=== PATIENT | female | born 1955 | race Caucasian/White ===

== ENCOUNTER → 2017-12-21 | Outpatient (CLI) | payer OTHER ==
[~2017-12-21] MED LIST: AMLO2.5T3 PO; BUPIVACAINE MPF 0.5% 10 ML VIAL for KCIC. IM ONE; HYDR12.53 PO; IOHEXOL 300 MG/ML 50 ML VIAL. INT ART ONE; LIDOCAINE 1% Multi-Dose 20 ML VIAL. ID ONE; methylPREDNISolone ACETATE 40 MG/ML VIAL. INT ART ONE
--- NOTE | 2017-12-21 18:06 | KCIC ---
Right hip injection History: Primary osteoarthritis of the right hip, pain for 2 to 3 months radiating into the leg Findings: Patient was informed of the risks to include pain, infection, bleeding, nerve or blood vessel injury, and allergic reaction. All questions were answered. The patient signed a written consent form for a right hip injection. Patient was placed in a supine position. External skin site overlying the right hip was prepped and draped in the usual sterile fashion. Betadine was utilized for cleansing solution. 1% lidocaine was utilized for local anesthesia to the depth of the right femoral neck. 22-gauge spinal needle was advanced to the margin of the right femoral neck. Solution containing 2 mL Depo-Medrol, 4 cc lidocaine, 4 cc Omnipaque 300, and 4 cc bupivacaine were injected. However due to firm resistance, the entirety of the mixture could not be injected, approximately 10 cc of the mixture injected. Injection demonstrated intra-articular position of the needle tip. Needle was removed. There were no immediate complications. Bandage was applied at site of puncture. Fluoroscopy time: 64 seconds, 2 fluoroscopic images. Impression: 1. Technically successful right hip injection without immediate complication as stated. Electronically signed by: Ananda Hickey MD (12/21/2017 6:03 PM) [facility]
== END | disposition home or self-care (01) ==
LOC: KCIC 12:35
PROVIDERS: ATTEND Nurse Practitioner Gerontology
DX: M16.11 Unilateral primary osteoarthritis, right hip (principal)
CPT/HCPCS: 20610; 77002; J1030; Q9967

== ENCOUNTER → 2018-05-02 | Outpatient (CLI) | payer OTHER ==
[~2018-05-02] MED LIST changes: -AMLO2.5T3 PO; +AMLO2.5T5 PO; +ATOR20TA58 PO; -BUPIVACAINE MPF 0.5% 10 ML VIAL for KCIC. IM ONE; +GABA600T7 PO; -HYDR12.53 PO; +HYDR12.575 PO; +IBUP-1007 PO; -IOHEXOL 300 MG/ML 50 ML VIAL. INT ART ONE; -LIDOCAINE 1% Multi-Dose 20 ML VIAL. ID ONE; +MELO15TA6 PO; +RANI150C PO; +TRAM50TA PO; +TRAZ-86 PO; +WARF-31 PO; -methylPREDNISolone ACETATE 40 MG/ML VIAL. INT ART ONE
[2018-05-02 09:56] LABS: ALBUMIN 3.7 g/dL (3.4-5.0); BASO # 0.1 x10^3/uL (0.0-0.2); BASO % 1 % (0-3); CALCIUM 9.7 mg/dL (8.5-10.1); CREATININE 0.7 mg/dL (0.6-1.0); EOS # 0.3 x10^3/uL (0.0-0.7); EOS % 4 % (0-3); GFR 84.8; HEMATOCRIT 42.7 % (36.0-47.0); LYMPH # 2.3 x10^3/uL (1.0-4.8); LYMPH % 29 % (24-48); MEAN CORPUSCULAR HEMOGLOBIN 32 pg (25-35); MEAN CORPUSCULAR HGB CONC 35 g/dL (31-37); MEAN CORPUSCULAR VOLUME 90 fL (79-100); MONO # 0.6 x10^3/uL (0.0-1.1); MONO % 8 % (0-9); NEUT # 4.7 x10^3uL (1.8-7.7); NEUT % 59 % (31-73); PLATELET COUNT 319 x10^3/uL (140-400); POTASSIUM 3.3 mmol/L (3.5-5.1); RED BLOOD COUNT 4.75 x10^6/uL (3.50-5.40); RED CELL DISTRIBUTION WIDTH 12.9 % (11.5-14.5); WHITE BLOOD COUNT 7.9 x10^3/uL (4.0-11.0)
[2018-05-02 10:00] LABS: PROTHROMBIN TIME PATIENT 13.8 SEC (11.7-14.0)
[2018-05-02 13:23] LABS: BILIRUBIN,URINE NEGATIVE (NEG); CLARITY,URINE CLEAR; COLOR,URINE YELLOW; NITRITE,URINE NEGATIVE (NEG); PROTEIN,URINE NEGATIVE (NEG-TRACE); UROBILINOGEN,URINE 0.2 mg/dL (0.2 mg/dL)
[2018-05-02 13:33] LABS: BACTERIA,URINE 0 /HPF (0-FEW); RBC,URINE 0 /HPF (0-2); SQUAMOUS EPITHELIAL CELL,UR FEW /LPF; WBC,URINE 0 /HPF (0-4)
--- NOTE | 2018-05-02 13:59 | EKG ---
[facility] [address] [place] [address] Test Date: 2018-05-02 Test Time: 13:46:04 Pat Name: JEREMIAH MCCRAY Department: Patient ID: [id number] Room: Gender: F Finance Advisor: [facility] : 1955 Requested By: LINDA OCONNOR Order Number: [id number] Reading MD: Evangelista Cooley MD Measurements Intervals [place] Rate: 74 P: 43 NE: 180 QRS: 56 QRSD: 74 T: 21 QT: 392 QTc: 436 Interpretive Statements SINUS RHYTHM Electronically Signed On 05-03-2018 12:15:59 LOCAL [employer] by Evangelista Cooley MD
--- NOTE | 2018-05-02 18:28 | RAD ---
Chest, 2 views, 05/02/2018: HISTORY: Preop evaluation for hip surgery The heart size and pulmonary vascularity are normal. No pulmonary infiltrate is seen. There is no evidence of pleural fluid. IMPRESSION: No acute cardiopulmonary abnormality is detected. Electronically signed by: Fernie Bowen MD (05/02/2018 6:24 PM) [facility]
== END | disposition home or self-care (01) ==
LOC: SURGPAT 14:14
PROVIDERS: ATTEND Orthopaedic Surgery
DX: Z01.818 Encounter for other preprocedural examination (principal); I10 Essential (primary) hypertension; F17.200 Nicotine dependence, unspecified, uncomplicated; Z79.01 Long term (current) use of anticoagulants
CPT/HCPCS: 36415; 71046; 80048; 81001; 82040; 85025; 85610; 85651; 85730; 87641; 93005

== ENCOUNTER 2020-12-06 12:01 | Emergency (ER) | payer MEDICARE, OTHER ==
[~2020-12-06] VITALS: Ht 152.4 cm; Wt 68.2 kg
[~2020-12-06 12:01] MED LIST changes: +TRAZ-123 PO; -TRAZ-86 PO
[2020-12-06] MEDS ORDERED: HYDROcodone/APAP 5/325MG 1 TAB TABLET PO ONE (12:45)
--- NOTE | 2020-12-06 12:46 | PHYS DOC ---
Past Medical History Additional Past Medical Histor: "LOW VITAMIN B" Past Surgical History: Hip Replacement Additional Past Surgical Histo: RIGHT HIP REPLACEMENT Smoking Status: Current Every Day Smoker General Adult EDM: Chief Complaint: UPPER EXTREMITY PAIN HPI: HPI: Patient is a 65 year old female presents emergency department complaining of right anterior shoulder and right mid shaft humerus pain for the past month. Patient reports she works out in her yard every day, suspects it might be from overuse. Patient reports she fractured her right humerus 33 years ago and worries that there may be something going on with the site that she broke patient denies blunt injury or trauma. Patient denies numbness or tingling distally to her shoulder and upper arm pain. Patient denies any swelling or skin discolorations. Patient reports full movement of elbow wrist and hand of the right, reports limited range of motion of her shoulder joint related to pain. Patient denies any pain when self splinting against body, reports a 6 out of 10 pain when moving her shoulder around. Patient reports her pain is a sharp stabbing in nature, 6 out of 10 at its worst, 0 at its best. Reports taking a ibuprofen 600 mg approximately 1 hour prior to arrival today for pain, reports she is not sure if it is helping or not because she is currently experiencing no pain. Patient denies trying any nonpharmacological pain relief therapies. Patient denies any other physical complaints or physical concerns. Review of Systems: Review of Systems: 14 body systems of review of systems have been reviewed. See HPI for pertinent positives and negative responses, otherwise all other systems are negative, nonpertinent or noncontributory. Constitutional: Negative except as outlined in HPI above. Skin: Negative except as outlined in HPI above. Eyes: Negative except as outlined in HPI above. HENT: Negative except as outlined in HPI above. Respiratory: Negative except as outlined in HPI above. Cardiovascular: Negative except as outlined in HPI above. GI: Negative except as outlined in HPI above. : Negative except as outlined in HPI above. Musculoskeletal: Negative except as outlined in HPI above. Integument: Negative except as outlined in HPI above. Neurologic: Negative except as outlined in HPI above. Endocrine: Negative except as outlined in HPI above. Lymphatic: Negative except as outlined in HPI above. Psychiatric: Negative except as outlined in HPI above. Heart Score: C/O Chest Pain: No Risk Factors: Risk Factors: DM, Current or recent (<one month) smoker, HTN, HLP, family history of CAD, obesity. Risk Scores: Score 0 - 3: 2.5% MACE over next 6 weeks - Discharge Home Score 4 - 6: 20.3% MACE over next 6 weeks - Admit for Clinical Observation Score 7 - 10: 72.7% MACE over next 6 weeks - Early Invasive Strategies Allergies: Allergies: Allergies Coded Allergies Type Severity Reaction Last Updated Verified tetracycline Adverse Reaction Intermediate Nausea and Vomiting 06/07/18 Yes Physical Exam: PE: Constitutional: Well developed, well nourished, no acute distress, non-toxic appearance. 65-year-old female in no apparent distress. HENT: Normocephalic, atraumatic. Eyes: Conjunctiva normal, no discharge. Neck: Normal range of motion, no stridor. Cardiovascular: No cyanosis appreciated, distal cap refill less than 2 seconds. Lungs & Thorax: Patient is in no respiratory distress, no audible adventitious lung sounds appreciated. Abdomen: Nontender, no abnormalities noted. Skin: Warm, dry, no erythema, no rash. Back: No tenderness, no deformities. Extremities: No tenderness, no cyanosis, no clubbing, ROM intact, no edema. Except for right shoulder, no deformity, no crepitus appreciated, limited passive range of motion related to pain, pain to palpation along midshaft hu merus, no bruising, no swelling, no edema, distal cap refill less than 2 seconds, 2+ radial and brachial pulses, Neurologic: Alert and oriented X 3, normal motor function, normal sensory function, no focal deficits noted. Psychologic: Affect normal, judgement normal, mood normal. Current Patient Data: Vital Signs: Vital Signs Date Time Temp Pulse Resp B/P (MAP) Pulse Ox O2 Delivery O2 Flow Rate FiO2 12/06/20 12:16 98.7 86 18 151/76 (60) 97 Room Air 98.7 EKG: EKG: [] Radiology/Procedures: Radiology/Procedures: PATIENT: JEREMIAH MCCRAY ACCOUNT: [id number] : 1955 LOCATION: ER AGE: 65 SEX: F EXAM STATUS: PRE ER ORD. PHYSICIAN: JARRELL JOHNSON APRN REASON: pain anterior shoulder x one month PROCEDURE: SHOULDER 2+V RIGHT Exam performed: X-ray right humerus and right shoulder. HISTORY: Pain. DATE OF SERVICE: 12/06/2020. COMPARISON: None available FINDINGS: AP and lateral view of the right humerus and AP view of the right shoulder in internal and external rotation and Y view is obtained. Normal alignment of the glenohumeral and acromial clavicular joint as well as elbow joint is maintained. There are early degenerative changes about the acromioclavicular joint. Old healed fracture of the distal right humerus. No soft tissue swelling or foreign body seen. IMPRESSION: Old healed fracture distal right humerus. Degenerative changes right acromioclavicular joint. Electronically signed by: Bhavya Shafer MD (12/06/2020 1:09 PM) [id number] Course & Med Decision Making: Course & Med Decision Making Pertinent Labs and Imaging studies reviewed. (See chart for details) 55-year-old female, vital signs reviewed, presents to the emergency department concerning right shoulder and right upper arm pain for the past month. Physical examination consistent with overuse injury, will x-ray to rule out bony process. Will give p.o. pain medication. X-ray right shoulder shows arthritic changes, humerus shows well-healed old fracture, no acute bony process per house radiologist rotation. Discussed findings with patient, patient reports she is feeling better since p.o. pain medication given, discussed shoulder exercises, overuse injury, using NSAIDs ibuprofen or Naprosyn for pains. Strict follow-up with primary care this week. Patient reports she does have a appointment to see her primary care physician this coming Wednesday. Patient is amenable to ED discharge planning. Discussed with the patient all findings and diagnostic testing as well as the need to follow-up with their primary care provider for further evaluation and treatment or return to the ED if any new or worsening symptoms. Strict return precautions were also discussed at length, the patient voiced understanding and agreement with the discharge planning. The patient was nontoxic in appearance, in no apparent distress, and hemodynamically stable at the time of disposition. Dragon Disclaimer: Dragon Disclaimer: This electronic medical record was generated, in whole or in part, using a voice recognition dictation system. Departure Departure Impression: Primary Impression: Right shoulder pain Qualified Codes: M25.511 - Pain in right shoulder; G89.29 - Other chronic pain Additional Impression: Right upper limb pain Disposition: 01 HOME / SELF CARE / HOMELESS Condition: GOOD Referrals: RENAY VILLARREAL (PCP) Patient Instructions: Shoulder Exercises, Generic, SportsMed Additional Instructions: You were seen today in the emergency department for pain in the right shoulder and right upper arm after weed eating and moving rocks and performing an excessive amount of yard work over the past month. Your physical examination was reassuring and that you do not have a bony injury however the x-ray as we discussed did show some arthritic changes. As we discussed please use ibuprofen or Naprosyn for anti-inflammatory, I am prescribing you a oral steroid, please take as directed, you are given an injection of steroid today in the emergency department called Depo-Medrol 40 mg. Please keep your appointment with your primary care physician. Return to the emergency department for worsening symptoms or other concerns. Thank you for visiting our Emergency Department. It was a pleasure taking care of you today in the emergency department and we appreciate you trusting us with your care. If any additional problems come up don't hesitate to return to visit us. Please follow up with your primary care provider so they can plan additional care if needed and know about the problem that you had. If symptoms worsen come back to the Emergency Department. Any concerning symptoms that start such as chest pain, shortness of air, weakness or numbness on one side of the body, running high fevers or any other concerning symptoms return to the ER. EMERGENCY DEPARTMENT GENERAL DISCHARGE INSTRUCTIONS Thank you for coming to [facility] (ED) today and trusting us with you care. We trust that you had a positive experience in our Emergency Department. If you wish to speak to the department management, you may call the Director at [phone]. YOUR FOLLOW UP INSTRUCTIONS ARE FOLLOWS: 1. Do you have a private Doctor? If you do not have a private doctor, please ask for a resource list of physicians or clinics that may be able to assist you with follow up care. 2. The Emergency Physicain has interpreted your x-rays. The X-Ray specialist will also review them. If there is a change in the findings, you will be notified in 48 hours when at all possible. 3. A lab test or culture has been done, your results will be reviewed and you will be notified if you need a change in treatment. ADDITIONAL INSTRUCTIONS AND INFORMATION: 1. Your care today has been supervised by a physician who is specially trained in emergency care. Many problems require more than one evaluation for a complete diagnosis and treatment. We recommend that you schedule your follow up appointment as recommended to ensure complete treatment of you illness or injury. If you are unable to obtain follow up care and continue to have a problem, or if your condition worsens, we recommend that you return to the ED. 2. We are not able to safely determine your condition over the phone nor are we able to give sound medical advice over the phone. For these safety reasons, if you call for medical advice we will ask you to come to the ED for further evaluation. 3. If you have any questions regarding these discharge instructions please call the ED at [phone]. SAFETY INFORMATION: In the interest of safety, wellness, and injury prevention; we encourage you to wear your sealbelt, if you smoke; quite smoking, and we encourage family to use a protective helmet for bicycling and other sporting events that present an increased risk for head injury. IF YOUR SYMPTOMS WORSEN OR NEW SYMPTOMS DEVELOP, OR YOU HAVE CONCERNS ABOUT YOUR CONDITION; OR IF YOUR CONDITION WORSENS WHILE YOU ARE WAITING FOR YOUR FOLLOW UP APPOINTMENT; EITHER CONTACT YOUR PRIMARY CARE DOCTOR, THE PHYSICIAN WHOSE NAME AND NUMBER YOU WERE GIVEN, OR RETURN TO THE ED IMMEDIATELY. Scripts Hydrocodone Bit/Acetaminophen (HYDROCODONE-APAP 10-325 ) 1 Tab Tablet 1 TAB PO PRN Q6HRS PRN for SEVERE PAIN 7-10, #10 TAB 0 Refills Prov: JARRELL JOHNSON APRN 12/06/20 Methylprednisolone (MEDROL) 4 Mg Tab.ds.pk 4 MG PO DAILY for shoulder pain, #28 TAB 0 Refills Please take medication as directed Prov: JARRELL JOHNSON APRN 12/06/20 JARRELL JOHNSON APRN Dec 06, 2020 12:46
--- NOTE | 2020-12-06 13:12 | RAD ---
Exam performed: X-ray right humerus and right shoulder. HISTORY: Pain. DATE OF SERVICE: 12/06/2020. COMPARISON: None available FINDINGS: AP and lateral view of the right humerus and AP view of the right shoulder in internal and external r otation and Y view is obtained. Normal alignment of the glenohumeral and acromial clavicular joint as well as elbow joint is maintain ed. There are early degenerative changes about the acromioclavicular joint. Old healed fracture of th e distal right humerus. No soft tissue swelling or foreign body seen. IMPRESSION: Old healed fracture distal right humerus. Degenerative changes right acromioclavicular joint. Electronically signed by: Bhavya Shafer MD (12/06/2020 1:09 PM) [id number]
[2020-12-06] MEDS ORDERED: HYDR-2769 PO (14:17)
[2020-12-06] MEDS ORDERED: METH4TAB2 PO (14:17)
[2020-12-06] MEDS ORDERED: methylPREDNISolone ACETATE 40 MG/ML VIAL. IM ONE (14:30)
[2020-12-06 14:51] VITALS: BP 165/77
== END 2020-12-06 14:49 | disposition home or self-care (01) ==
LOC: ER 12:01
DX: M25.511 Pain in right shoulder (principal); G89.29 Other chronic pain; M79.601 Pain in right arm; F17.200 Nicotine dependence, unspecified, uncomplicated; Z96.641 Presence of right artificial hip joint; Z88.1 Allergy status to other antibiotic agents
CPT/HCPCS: 73030; 73060; 96372; 99284; J1030

== ENCOUNTER 2021-01-05 10:52 | Emergency (ER) | payer MEDICARE, OTHER ==
[~2021-01-05] VITALS: Ht 152.4 cm; Wt 70.0 kg
[~2021-01-05 10:52] MED LIST changes: +HYDR-2769 PO; +METH4TAB2 PO
[2021-01-05 12:41] VITALS: BP 166/77
--- NOTE | 2021-01-05 12:43 | PHYS DOC ---
Past Medical History Additional Past Medical Histor: "LOW VITAMIN B"; sciatica Past Surgical History: Hip Replacement Additional Past Surgical Histo: RIGHT HIP REPLACEMENT Smoking Status: Current Every Day Smoker Alcohol Use: None Drug Use: None General Adult EDM: Chief Complaint: LOWER EXT PAIN HPI: HPI: 65-year-old female with a history of sciatic nerve pain on the right side presents the emergency department complaining of right-sided sciatic pain that is acute on chronic. She reports her pain is been present for several weeks got worse today not associate with any new trauma or injury. She reports that the last several days she has been using a walker to get around the house and her activities of daily living have been impaired. She has not had any recent MRIs performed of the spine. 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 She admits to some abdominal soreness which he states is from sitting in her chair abnormal because the right leg has been bothering her so much. The patient denies recent fever, saddle anesthesia, bowel or bladder incontinence, weakness or numbness, chest pain, shortness of breath, or any other medical complaints. Also denies IV drug use, history of spinal surgery, history of cancer Review of Systems: Review of Systems: ROS is otherwise negative except for what was mentioned in the HPI Heart Score: C/O Chest Pain: No Allergies: Allergies: Allergies Coded Allergies Type Severity Reaction Last Updated Verified tetracycline Adverse Reaction Intermediate Nausea and Vomiting 06/07/18 Yes Physical Exam: PE: Constitutional: Mild tenderness, appears to be in pain, patient has pain upon movements of her back. Eyes: PERRLA, EOMI, conjunctiva normal, no discharge. Neck: Normal range of motion, supple, nontender cervical spine, no stridor. Cardiovascular: Heart rate regular rhythm. 2+ radial pulses Lungs & Thorax: No respiratory distress, symmetrical expansion. Abdomen: Soft, no tenderness Skin: Warm, dry, no rash. Extremities: No tenderness, no cyanosis, ROM intact, no edema. Back: No point or midline T or L-spine tenderness, no palpable spasm, overlying skin is unremarkable, Neurologic: Alert and oriented X 3, 5/5 strength in lower extremities bilaterally, L3-S1 dermatomes are intact and equal bilaterally, no focal deficits noted. Able to get out of wheelchair. GCS 15. Psychologic: Affect normal, judgment normal, mood normal. Current Patient Data: Vital Signs: Vital Signs Date Time Temp Pulse Resp B/P (MAP) Pulse Ox O2 Delivery O2 Flow Rate FiO2 01/05/21 12:41 99.8 87 16 166/77 (106) 95 Room Air 99.8 Radiology/Procedures: Radiology/Procedures: PROCEDURE: HIP RIGHT 2V WITH PELVIS AP radiograph of the pelvis to include AP and lateral radiographs of the right hip 01/05/2021 CLINICAL HISTORY: Right hip pain. Comparison study is dated 06/07/2018. The patient is post right DELBERT. The prosthetic components are intact. Tubal ligation bands overlie the pelvis. No pelvic bone fracture is seen. The left hip is intact. Degenerative changes are s een involving the mid and lower lumbar spine along with both SI joints and left hip. IMPRESSION: No acute osseous abnormality is seen. Electronically signed by: Leonardo Garza MD (01/05/2021 1:30 PM) PROCEDURE: LUMBAR SPINE 2-3V XR LUMBAR SPINE 2-3V History: Hip pain Comparison: None. Technique: 3 views of the lumbar spine. Findings: There are 5 non-rib bearing lumbar vertebral segments. There is no evidence of fracture. Grade 1 anterolisthesis of the L4 vertebral body on L5. No pars defect is seen in this is likely on the basis of facet hypertrophy. No destructive osseous lesions are seen. Lower lumbar facet hypertrophy. Severe disc space narrowing L4-L5. Moderate disc space narrowing L2-L3 L3-L4. Mild narrowing at L5-S1. Sacroiliac joints are unremarkable. Partially visualized right hip arthroplasty. Surgical clips in the pelvis. Calcification of the abdominal aorta. IMPRESSION: 1. Degenerative changes of the lumbar spine with grade 1 anterolisthesis of L4 on L5. Electronically signed by: Miki Browning MD (01/05/2021 1:33 PM) Course & Med Decision Making: Course & Med Decision Making Patient felt much better after Valium, Toradol. We will discharge her with a supply of Valium for sleeping at night. I discussed that narcotics will have to be prescribed by her primary care physician for sciatic nerve pain. I also st ressed that she needs to follow-up with her primary care to schedule an MRI to delineate her further chronic sciatica. Patient was amenable to this plan, I discussed return precautions, patient was discharged in improved condition Departure Departure Impression: Primary Impression: Sciatica of right side Disposition: HOME / SELF CARE / HOMELESS Condition: IMPROVED Referrals: MICHAEL LANDEROS MD (PCP) Patient Instructions: Sciatica, [id number] Additional Instructions: You were seen in the emergency department for back pain. Your pain could be musculoskeletal in nature and could be from a pulled or strained muscle. The pain should improve with NSAID medications (ibuprofen, Aleve, etc.), stretching, and light activity. You may also use Tylenol for your back pain (no more than 3000 mg per day). Take as directed by instructions. Do not take NSAID medications if you have kidney disease. Do not take Tylenol if you have liver disease. If it does not improve, you should follow up with a primary care doctor. - Use stretching and strengthening exercises at least twice per day, continue to complete physical activity such as walking, and alternate ice and heat (ie heating pad) to the area of pain. - Return to the Emergency Department should your symptoms worsen, or should you develop a fever, change in bowel or bladder habits, weakness or numbness in your lower extremities, inability to walk, or any concern you feel warrants further evaluation. - Take Aleve or Ibuprofen, and Tylenol as needed for your pain. - You may use over the counter lidocaine patches as needed for pain. - Avoid taking narcotic medications for back pain. - Follow up with your doctor within 1-2 weeks if your symptoms are not improving. Scripts Diazepam (VALIUM) 5 Mg Tablet 5 MG PO QHS for PAIN/SPASM for 7 Days, #7 TAB Prov: MUNA NAZARIO DO 01/05/21 MUNA NAZARIO DO Jan 05, 2021 12:43
[2021-01-05] MEDS ORDERED: KETOROLAC 15 MG/ML VIAL. IVP ONE (12:45)
[2021-01-05] MEDS ORDERED: diazePAM 5 MG TABLET PO ONE (12:45)
--- NOTE | 2021-01-05 13:32 | RAD ---
AP radiograph of the pelvis to include AP and lateral radiographs of the right hip 01/05/2021 CLINICAL HISTORY: Right hip pain. Comparison study is dated 06/07/2018. The patient is post right DELBERT. The prosthetic components are int act. Tubal ligation bands overlie the pelvis. No pelvic bone fracture is seen. The left hip is intact . Degenerative changes are seen involving the mid and lower lumbar spine along with both SI joints an d left hip. IMPRESSION: No acute osseous abnormality is seen. Electronically signed by: Leonardo Garza MD (01/05/2021 1:30 PM) [id number]
--- NOTE | 2021-01-05 13:35 | RAD ---
XR LUMBAR SPINE 2-3V History: Hip pain Comparison: None. Technique: 3 views of the lumbar spine. Findings: There are 5 non-rib bearing lumbar vertebral segments. There is no evidence of fracture. Grade 1 anterolisthesis of the L4 vertebral body on L5. No pars defect is seen in this is likely on t he basis of facet hypertrophy. No destructive osseous lesions are seen. Lower lumbar facet hypertrophy. Severe disc space narrowing L4-L5. Moderate disc space narrowing L2-L3 L3-L4. Mild narrowing at L5-S1 . Sacroiliac joints are unremarkable. Partially visualized right hip arthroplasty. Surgical clips in the pelvis. Calcification of the abdom inal aorta. IMPRESSION: 1. Degenerative changes of the lumbar spine with grade 1 anterolisthesis of L4 on L5. Electronically signed by: Miki Browning MD (01/05/2021 1:33 PM) [id number]
[2021-01-05] MEDS ORDERED: DIAZ5TAB PO (14:16)
== END 2021-01-05 15:15 | disposition home or self-care (01) ==
LOC: ER 10:52
DX: M54.31 Sciatica, right side (principal); F17.200 Nicotine dependence, unspecified, uncomplicated; Z96.641 Presence of right artificial hip joint; Z88.1 Allergy status to other antibiotic agents
CPT/HCPCS: 72100; 73502; 96374; 99284; J1885

== ENCOUNTER → 2021-03-04 | Outpatient (CLI) | payer MEDICARE, OTHER ==
[~2021-03-04] MED LIST changes: +DIAZ5TAB PO; +DULO20CA PO; +FAMO20TA5 PO; +GABA-689 PO; +IOHEXOL 180 MG/ML 10 ML VIAL. ONE; +LOSA25TA54 PO; +methylPREDNISolone ACETATE 40 MG/ML VIAL. ONE; +methylPREDNISolone ACETATE 80 MG/ML VIAL. ONE
--- NOTE | 2021-03-04 12:25 | PDOC1 ---
INITIAL PAIN CONSULT DATE OF SERVICE: DOS: DATE: 03/04/21 TIME: 12:19 CHIEF COMPLAINT: Chief Complaint: Low back right lower extremity pain HISTORY OF PRESENT ILLNESS: 65-year-old female presents history of pain low back right lower extremity for 2 months nodule with any specific injury but she was doing her hair bent forward and then stood back up felt a significant "pop" in her low back with significant pain in the low back into the right lower extremity. Patient reports has been getting worse since that time she has gone through physical therapy in the past and is on stretching strength exercises this time around also had some trigger point injections at her primary care physician's office and May a year ago which helped but not had anything recently patient reports has been taking gabapentin as well as ibuprofen both of which decrease the pain slightly naproxen has not been helpful. Patient reports pain is in the low back rating the right lower extremity posterior gluteus posterior lateral thigh lateral anterior thigh anteromedial thigh medial lower leg and into the medial calf with significant burning stinging pain in the anterior lower leg to the ankle. Patient reports is worse with walking standing changing positions better with sitting or laying down but wakes her for sleep least once or twice a night patient reports is not effective bowel bladder control does affect her ability to walk she uses a cane occasionally does not have it with her today. Patient did have an MRI scan of the lumbar spine showing prominent degenerative facet changes at L4-5 level with disc bulge and listhesis causing bilateral foraminal narrowing more pronounced on the right with moderate to severe loss of disc height at L4-5 mild to moderate left and moderate to severe right foraminal narrowing identified with more prominent component of right foraminal disc bulge. Patient rates her disability rating 0-10 10 being the worst is a 9-10 with family home responsibilities 10 with recreation 9 with social activity 8-9 with occupation 10 essential behavior 6 with self-care and 0 with life support activities. Patient reports a loss of motor function with significant fatigability of the right lower extremity with standing and walking. Patient reports no bowel or bladder incontinence. PAST MEDICAL HISTORY: PMH: Hypertension, COPD cigarette smoking, arthritis PREVIOUS SURGERIES: Past Surgical Hx: Total hip replacement 2019 on the right, x2 CURRENT MEDICATIONS: Current Meds: Active Scripts Medications Dose Route/Sig Max Daily Dose Days Date Category Ibuprofen 600 Mg Tablet 600 Mg PO PRN Q6HRS PRN 03/04/21 Reported Cymbalta (Duloxetine Hcl) 20 Mg Capsule.dr 20 Mg PO BID 03/04/21 Reported Losartan Potassium (Losartan Potassium) 25 Mg Tablet 25 Mg PO DAILY 03/04/21 Reported Famotidine 20 Mg Tablet 20 Mg PO BID 03/04/21 Reported Gabapentin (Gabapentin) 400 Mg Capsule 900 Mg PO TID 03/04/21 Reported Trazodone Hcl 100 Mg Tablet 100 Mg PO HS 05/02/18 Reported Atorvastatin Calcium 20 Mg Tablet 20 Mg PO HS 05/02/18 Reported Hydrochlorothiazide Capsule (Hydrochlorothiazide) 12.5 Mg Capsule 50 Mg PO DAILY 12/21/17 Reported ALLERGIES; Allergies: Coded Allergies: tetracycline (Verified Adverse Reaction, Intermediate, Nausea and Vomiting, 06/07/18) FAMILY HISTORY: Family Hx: COPD SOCIAL HISTORY: Social Hx: Patient drinks alcohol once or twice a week denies any illicit recreational drugs smokes cigarettes less than a pack a day and has for 17 years continues to smoke, patient is lives locally in [facility]. REVIEW OF SYSTEMS: ROS: Positive for those items mentioned in history of present illness, all systems are reviewed, otherwise negative ,and are complete full and well-documented on patient's chart. PHYSICAL EXAM: VS: Blood pressures 135/78 pulse 84 respirations 18 temperature 98.3 F height is 5 feet 1 inches weight is 158 pounds PE: PHYSICAL EXAMINATION: GENERAL: The patient is awake, alert, oriented, appropriate, very pleasant in demeanor, patient Kumpe by her . HEENT: Shows normocephalic, atraumatic. Extraocular movements are intact and symmetrical. Oral cavity: Mucous membranes moist and pink. Dentition is intact. NECK: Shows anterior throat supple without palpable lymphadenopathy noted. Swallow reflex symmetrical. CHEST: Shows normal on inspection. Breath sounds are clear bilaterally, distant but no rales or rhonchi or wheezes. HEART: Shows S1, S2 clear. No murmurs auscultated. ABDOMEN: Soft, nontender, nondistended, obese. No palpable organomegaly is noted. No rebound or guarding demonstrated. BACK: Shows spine grossly in the midline. Normal-appearing cervical lordotic curvature. There is slightly increased thoracic kyphosis, some flattening of the lumbar lordotic curvature. Lumbar paraspinous muscles show symmetrical on inspection, on palpation shows some moderate tenderness diffusely throughout the upper, middle and lower distribution of the paraspinous muscles bilaterally and also into the lower thoracic paraspinous musculature, firm and tender, but without specific trigger points, without radiation of pain. The patient has good rotational motion of the lumbar spine, both laterally as well as extension and flexion without significant difficulty. No tenderness over the spinous processes, sacrum or sacroiliac regions. EXTREMITIES: Lower extremities show deep tendon reflexes 2+ in the patellar and tendo calcaneus tendons. Motor exam is 4 on a scale of 5 with right dorsiflexion, extension, quadriceps and hamstring flexion and 5/5 on the left. Peripheral pulses are 1+ posterior tibial. No peripheral edema is noted iban aterally. Lower extremities are warm and dry to touch, equal in color and appearance. Straight leg raise noted to be positive on the right about 30 degrees, left side is []. Gaenslen's and Yoni's maneuvers are negative bilaterally. The patient is able to stand, stand her toes without significant difficulty loss of balance but is a significant favoring gait with walking favor ing the right lower extremity. SKIN: Shows warm and dry, good turgor. No edema. No sores, rashes or bruising throughout. IMPRESSION: Impression: 65-year-old female with approximate 2-month history increasing pain low back right lower extremity radicular fashion MRI scan lumbar spine as noted Arthritis Hypertension COPD Cigarette smoking Plan: Options were discussed with patient including serve medical management physical therapies interventional techniques. Patient elects interventional techniques. We discussed a lumbar epidural steroid injection using description as well as anatomical models described the procedure. Risks were discussed including but not limited to: Bleeding, infection, possibility of epidural hematoma and subsequent neurological compromise, dural puncture, headaches, spinal cord and/or nerve damage, side effects of steroid medication, and poor results regarding pain control. Patient understands and wished to proceed. Patient return to the clinic in approximately 2 weeks for follow-up, was counseled return appointment, activity level, and side effect to be aware of. Procedure is lumbar epidural steroid injection under local anesthetic using sterile prep and drape at the L4-5 level using C-arm fluoroscopic guidance in both AP and lateral views medications injected is 120 mg Depo-Medrol +10mL preservative-free normal saline and 2 mL contrast- condition at discharge is stable patient tolerated procedure well had no complications. PRAVIN FISHER MD Mar 04, 2021 12:25
--- NOTE | 2021-03-04 12:26 | PDOC4 ---
Procedure Note: ICD 10 Code: ICD 10 Code: M54.12 M50.30 Procedure Note: Patient was consented for lumbar epidural steroid injection with fluoroscopic guidance. Risks were discussed including but not limited to: Bleeding, infection, possibility of epidural hematoma and subsequent neurological compromise, dural puncture, headaches, spinal cord and/or nerve damage, side effects of steroid medication, and poor results regarding pain control. Patient understands and wished to proceed. Procedure is lumbar epidural steroid injection under local anesthetic using sterile prep and drape at the L4-5 level using C-arm fluoroscopic guidance in both AP and lateral views medications injected is 120 mg Depo-Medrol +10mL preservative-free normal saline and 2 mL contrast- condition at discharge is stable patient tolerated procedure well had no complications. PRAVIN FISHER MD Mar 04, 2021 12:26
== END | disposition home or self-care (01) ==
LOC: PNCL 09:44
PROVIDERS: ATTEND Anesthesiology
DX: M54.50 Low back pain, unspecified (principal); M79.604 Pain in right leg; M50.10 Cervical disc disorder with radiculopathy, unspecified cervical region; I10 Essential (primary) hypertension; J44.9 Chronic obstructive pulmonary disease, unspecified; M19.90 Unspecified osteoarthritis, unspecified site; E78.00 Pure hypercholesterolemia, unspecified; K21.9 Gastro-esophageal reflux disease without esophagitis; F32.9 Major depressive disorder, single episode, unspecified; F17.210 Nicotine dependence, cigarettes, uncomplicated; Z79.899 Other long term (current) drug therapy; Z98.890 Other specified postprocedural states; Z88.1 Allergy status to other antibiotic agents
CPT/HCPCS: 62323; J1030; J1040; Q9965

== ENCOUNTER → 2021-03-21 | Outpatient (CLI) | payer MEDICARE, OTHER ==
--- NOTE | 2021-03-21 10:14 | PDOC ---
Progress Note - Pain Clinic Date of Service: DOS: DATE: 03/21/21 TIME: 10:12 Diagnosis: Dx: Lumbar radiculopathy with lumbar degenerative disease and lumbar spinal stenosis History or Present Illness: HPI: 65-year-old female returns for follow-up status post lumbar epidural to injection x1. Patient reports about 50% improvement in the low back and right lower extremity patient reports is still helpful the pain is beginning to become more noticeable now and is also in the left groin which is new for her patient reports this is come up over the past few days not result of any specific injury or accident that she is aware of is been very active though working her yard as it had some warm weather lately and she was out taking care of some things that need to be done patient reports the pain is increased since then began in the low back right lower extremity posterior gluteus posterior lateral thigh lateral anterior thigh anteromedial thigh medial lower leg as well as now in the left groin as well. Patient reports no bowel or bladder incontinence reports her pain is an 8 on scale 10 is worse over the past week 5-6 on average in 4 days least and is a 5 today. Physical Exam: VS: Blood pressure is 121/68 pulse 76 respirations are 1890.3 F weight is 155 pounds PE: PHYSICAL EXAMINATION: GENERAL: The patient is awake, alert, oriented, appropriate, very pleasant in demeanor HEENT: Shows normocephalic, atraumatic. Extraocular movements are intact and symmetrical. Oral cavity: Mucous membranes moist and pink. Dentition is intact. NECK: Shows anterior throat supple without palpable lymphadenopathy noted. Swallow reflex symmetrical. CHEST: Shows normal on inspection. Breath sounds are clear bilaterally, distant but no rales or rhonchi. HEART: Shows S1, S2 clear. No murmurs auscultated. ABDOMEN: Soft, nontender, nondistended, obese. No palpable organomegaly is noted. BACK: Shows spine grossly in the midline. Normal-appearing cervical lordotic curvature. There is increased thoracic kyphosis, some flattening of the lumbar lordotic curvature. Lumbar paraspinous muscles show symmetrical on inspection, on palpation shows some moderate tenderness diffusely throughout the upper, middle and lower distribution of the paraspinous muscles without specific trigger points, without radiation of pain. The patient has good rotational motion of the lumbar spine, both laterally as well as extension and flexion without significant difficulty. EXTREMITIES: Lower extremities show deep tendon reflexes 2+ in the patellar and tendo calcaneus tendons. Motor exam is 4 on a scale of 5 with right dorsiflexion, extension, quadriceps and hamstring flexion and 5/5 on the left. Peripheral pulses are 1+ posterior tibial. No peripheral edema is noted bilat erally. Lower extremities are warm and dry. SKIN: Shows warm and dry, good turgor. No edema. No sores, rashes or bruising throughout. Procedure: Procedure: Options discussed with patient. Patient's old chart was reviewed as her current medication regimen updated current review of systems updated today as well. We will proceed with a lumbar epidural steroid injection today with fluoroscopic guidance. Risks were discussed including but not limited to: Bleeding, infection, possibility of epidural hematoma and subsequent neurological compromise, dural puncture, headaches, spinal cord and/or nerve damage, side effects of steroid medication, and poor results regarding pain control. Patient understands and wished to proceed. Patient will return to the clinic in approximate 2 weeks for follow-up, was counseled as to return appointment, activity level, and side effect to be aware of. Medication Injected: Med Injected: Procedure is lumbar epidural steroid injection under local anesthetic using sterile prep and drape at the L4-5 level using C-arm fluoroscopic guidance in b oth AP and lateral views medications injected is 120 mg Depo-Medrol +10mL preservative-free normal saline and 2 mL contrast- condition at discharge is stable patient tolerated procedure well had no complications. Condition at Discharge: Condition at Discharge: Condition at discharge stable, patient tolerated procedure well and had no complications. PRAVIN FISHER MD Mar 21, 2021 10:14
--- NOTE | 2021-03-21 10:15 | PDOC4 ---
Procedure Note: ICD 10 Code: ICD 10 Code: M54.16 M 48.06 M51.3 is Procedure Note: Patient was consented for lumbar epidural steroid injection with fluoroscopic guidance. Risks were discussed including but not limited to: Bleeding, infection, possibility of epidural hematoma and subsequent neurological compromise, dural puncture, headaches, spinal cord and/or nerve damage, side effects of steroid medication, and poor results regarding pain control. Patient understands and wished to proceed. Procedure is lumbar epidural steroid injection under local anesthetic using s terile prep and drape at the L4-5 level using C-arm fluoroscopic guidance in both AP and lateral views medications injected is 120 mg Depo-Medrol +10mL preservative-free normal saline and 2 mL contrast- condition at discharge is stable patient tolerated procedure well had no complications. PRAVIN FISHER MD Mar 21, 2021 10:15
== END | disposition home or self-care (01) ==
LOC: PNCL 09:37
PROVIDERS: ATTEND Anesthesiology
DX: M51.16 Intervertebral disc disorders with radiculopathy, lumbar region (principal); M48.061 Spinal stenosis, lumbar region without neurogenic claudication; I10 Essential (primary) hypertension; E78.00 Pure hypercholesterolemia, unspecified; K21.9 Gastro-esophageal reflux disease without esophagitis; M19.90 Unspecified osteoarthritis, unspecified site; F32.9 Major depressive disorder, single episode, unspecified; F17.210 Nicotine dependence, cigarettes, uncomplicated; Z79.899 Other long term (current) drug therapy; Z98.890 Other specified postprocedural states; Z88.1 Allergy status to other antibiotic agents; Z72.89 Other problems related to lifestyle
CPT/HCPCS: 62323; J1030; J1040; Q9965

== ENCOUNTER → 2021-07-04 | Day surgery (SDC) | payer OTHER, MEDICARE ==
[~2021-07-04] VITALS: Ht 154.9 cm; Wt 68.6 kg
[~2021-07-04] MED LIST changes: -IOHEXOL 180 MG/ML 10 ML VIAL. ONE; +IV RINGERS,LACTATED 1000ML 1,000 ML IV SCH; +LIDOCAINE 2% PF 5 ML VIAL. ONE; +PROPOFOL 10 MG/ML (20ML) VIAL. IV ONE; -methylPREDNISolone ACETATE 40 MG/ML VIAL. ONE; -methylPREDNISolone ACETATE 80 MG/ML VIAL. ONE
[2021-07-04 06:25] VITALS: BP 126/61
[2021-07-04 08:05] VITALS: BP 145/67
== END | disposition home or self-care (01) ==
LOC: ENDOS 06:03
PROVIDERS: ATTEND Internal Medicine Gastroenterology
DX: Z12.11 Encounter for screening for malignant neoplasm of colon (principal); K64.0 First degree hemorrhoids; K57.30 Diverticulosis of large intestine without perforation or abscess without bleeding; K63.89 Other specified diseases of intestine; I10 Essential (primary) hypertension; E78.00 Pure hypercholesterolemia, unspecified; K21.9 Gastro-esophageal reflux disease without esophagitis; M19.90 Unspecified osteoarthritis, unspecified site; F32.9 Major depressive disorder, single episode, unspecified; F17.210 Nicotine dependence, cigarettes, uncomplicated; Z79.899 Other long term (current) drug therapy; Z80.0 Family history of malignant neoplasm of digestive organs; Z88.1 Allergy status to other antibiotic agents; Z88.8 Allergy status to other drugs, medicaments and biological substances; Z98.890 Other specified postprocedural states; Z98.51 Tubal ligation status
CPT/HCPCS: G0105; J2704; 45378